=== PATIENT | female | born 2000 | race African-American/Black ===

== ENCOUNTER 2018-07-29 23:33 | Emergency (ER) | payer OTHER, SELFPAY ==
[2018-07-29 23:45] VITALS: BP 125/98; PULSE 77; RESP 17; TEMP 36.8; O2SAT 99; BMI 20.1
--- NOTE | 2018-07-30 04:08 | ED.MEDCLEAR ---
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 When she inspected and more closely she was sprayed and thinks she got a few drops of jet feel in her mouth. She states she certainly did not swallow any. She had impressive coughing and gagging immediately but denies any ongoing symptoms. She has had no cough, shortness of breath or any other difficulty in breathing. She has had no nausea or vomiting. She is not dizzy or weak or lightheaded. MD complaint: medical clearance requested Onset (ago): hour(s) Reason for Medical Clearance: other Place: work Traumatic Symptoms: denies traumatic injury Associated Symptoms: denies other symptoms Treatments Prior to Arrival: none Review of Systems Constitutional Denies chills, Denies fever(s), Denies lethargy and Denies weakness Eyes Denies change in vision, Denies eye discharge, Denies irritation and Denies loss of vision ENT Ears, Nose, Mouth, and Throat: Reports change in voice, Denies neck pain and Reports sore throat Cardiovascular Denies chest pain, Denies irregular heart rhythm, Denies lightheadedness, Denies palpitations, Denies dyspnea, Denies dyspnea on exertion and Denies orthopnea Respiratory Denies cough, Denies dyspnea, Denies dyspnea on exertion and Denies wheezing Gastrointestinal Gastrointestinal: Denies abdominal pain, Denies change in bowel habits, Denies diarrhea, Denies nausea and Denies vomiting Genitourinary Denies hematuria, Denies flank pain, Denies urinary incontinence and Denies urinary urgency Musculoskeletal Denies neck pain Integumentary/Breasts Denies pruritus, Denies erythema, Denies rash and Denies wounds Neurologic Denies confusion, Denies loss of vision and Denies weakness Psychiatric Denies anxiety, Denies confusion, Denies depression, Denies homicidal ideation and Denies suicidal ideation Endocrine Denies palpitations Hematologic/Lymphatic Denies easy bruising Allergic/Immunologic Denies wheezing [facility] Social History Smoking Status: Never smoker Social History Smoking Status: Never smoker Exam Narrative Exam Narrative: GENERAL: This is a well-nourished, well-developed patient, in mild distress. HEAD: Atraumatic. Normocephalic. No temporal or scalp tenderness. EYES: Pupils equal round and reactive. Extraocular motions intact. No scleral icterus. No injection or drainage. ENT: Nose without bleeding, purulent drainage or septal hematoma. Throat without erythema, tonsillar hypertrophy or exudate. Uvula midline. Airway patent. NECK: Trachea midline. No JVD or lymphadenopathy. Supple, nontender, no meningeal signs. CARDIOVASCULAR: Regular rate and rhythm without murmurs, gallops, or rubs. RESPIRATORY: Clear to auscultation. Breath sounds equal bilaterally. No wheezes, rales, or rhonchi. GASTROINTESTINAL: Abdomen soft, non-tender, nondistended. No hepato-splenomegaly, or palpable masses. No guarding. EXTREMITIES: No clubbing, cyanosis, or edema. No joint tenderness, effusion, or edema noted. BACK: Nontender without deformity or crepitance. No flank tenderness. NEURO: AOx3. SKIN: No rash or erythema. Initial Vital Signs Initial Vital Signs: Vital Signs Temperature 98.3 F 07/29/18 23:45 Pulse Rate 77 07/29/18 23:45 Respiratory Rate 17 07/29/18 23:45 Blood Pressure 125/98 H 07/29/18 23:45 Pulse Oximetry 99 07/29/18 23:45 MDM - Medical Clearance MDM Narrative Medical decision making narrative: Patient had a very minimal exposure to hydrocarbons. She had extensive coughing and sputtering and has had a sore throat since. She is certain she did not swallow any and denies any difficulty with abdominal pain, nausea, vomiting or shortness of breath with cough. I have consulted poison Control and they sure the opinion that this was a very minor exposure and had no imaging or lab work nor official observation. Our needed. She is given return precautions which she verbalizes an understanding Discharge Plan Departure Patient Disposition: Home Clinical Impression: Accidental hydrocarbon ingestion Qualifiers: Encounter type: initial encounter Qualified Code(s): T59.891A - Toxic effect of other specified gases, fumes and vapors, accidental (unintentional), initial encounter Discharge Date/Time: 07/30/18 00:11 Interventions: ED Discharge Assessment Last Done: 07/30/18 00:10 Instructions: DI for Accidental Ingestion -- Adult Activity Restrictions/Additional Instructions: *You have been diagnosed with [ accidental hydrocarbon exposure ] *What to do: *Follow up with your primary care provider in 2-3 days, call for an appointment. Let them know you were seen in the Emergency Department and that we ask that you be seen in follow up *Return to ER if you should have any new, worsening or concerning symptoms, such as [ ongoing cough, shortness of breath, vomiting or other bothersome symptoms]
== END 2018-07-30 00:11 | disposition home or self-care (01) ==
PROVIDERS: Emergency Provider Emergency Medicine
DX: T59.891A Toxic effect of other specified gases, fumes and vapors, accidental (unintentional), initial encounter (principal); Y99.1 Military activity
CPT/HCPCS: 99282

== ENCOUNTER 2018-12-02 13:30 | Emergency (ER) | payer OTHER, SELFPAY ==
[2018-12-02] VITALS (8 sets, daily range): BP systolic 90–124; BP diastolic 55–84; PULSE 66–92; RESP 14–18; TEMP 36.4; O2SAT 99–100
[2018-12-02 13:55] LABS: Bacteria Urine None Seen; RBC Urine None Seen (0-5/HPF)
[2018-12-02 14:06] LABS: Culture Indicated Urine Specimen Cultured; Squamous Epithelial Cell Urine 0-1 /HPF (0-5/HPF); WBC Urine 5-10/HPF (0-5/HPF)
--- NOTE | 2018-12-02 14:18 | ED_ITS ---
HPI - Weakness <JAYME De Oliveira - Last Filed: 12/02/18 21:13> General Chief complaint: Weakness Stated complaint: LIGHTHEADED, BODY TINGLING Time Seen by Provider: 12/02/18 13:56 Source: patient Mode of arrival: ambulatory Limitations: no limitations History of Present Illness HPI Narrative: 17-year-old female presents emergency department today complaining of increased headaches, fatigue, loss of appetite, nausea, that has increased over the past few weeks, patient states that she has had headaches behind her eyes for about 5 years, they have just recently increased in frequency since she is trying a . Over the last 3 days she has not eaten very much because she has been nauseated. Today she felt lightheaded and dizzy when she stood up. Denies fevers, chills chest pain, shortness of breath, abdominal pain, vomiting, diarrhea, or dysuria. When questioned, patient states that she has had a lot of anxiety recently, but does not elaborate on the issues. She states she feels safe where she is living. Related Data Home Medications Medication Instructions Recorded Confirmed No Known Home Medications 12/02/18 12/02/18 Allergies Allergy/AdvReac Type Severity Reaction Status Date / Time No Known Drug Allergies Allergy Verified 12/02/18 14:12 Review of Systems <JAYME De Oliveira - Last Filed: 12/02/18 21:13> Review of Systems REVIEW OF SYSTEMS: GENERAL: Denies fever or chills. HENT: No head trauma, hearing loss or sore throat. Complains of headache, see HPI. EYES: No loss of vision, double vision, eye pain, or irritation. CARDIOVASCULAR: No chest pain or syncope. RESPIRATORY: No shortness of breath or cough. GASTROINTESTINAL: Complains of decreased appetite, see HPI. GENITOURINARY: No flank pain or dysuria. MUSCULOSKELETAL: Complains of generalized fatigue, see HPI. INTEGUMENTARY: No rash, lesions, or pruritus. NEURO: No numbness, tingling, memory loss, or confusion. Complains of difficulty sleeping. PSYCH: Reports increase anxiety, see HPI. PFSH <JAYME De Oliveira - Last Filed: 12/02/18 21:13> Medical History Migraines (Acute) Social History Smoking Status: Never smoker Social History Smoking Status: Never smoker Exam <JAYME De Oliveira - Last Filed: 12/02/18 21:13> Initial Vital Signs Initial Vital Signs: Vital Signs Temperature 97.5 F L 12/02/18 13:38 Pulse Rate 73 12/02/18 13:38 Respiratory Rate 18 12/02/18 13:38 Blood Pressure 124/84 12/02/18 13:38 Pulse Oximetry 99 12/02/18 13:38 PHYSICAL EXAMINATION: GENERAL: Well groomed, alert, and cooperative. Thin appearing with a flat affect Answers questions promptly and appropriately. Vital signs noted. HENT: Normocephalic, atraumatic. Oral mucosa is pink and moist. Oropharynx without erythema. EYES: PERRLA, EOMIs, conjunctiva pink, sclera white, no periorbital swelling. CARDIOVASCULAR: S1 and S2 sounds normal. Regular rate and rhythm, no murmurs, clicks, or bruits. No pedal edema. RESPIRATORY: Normal respiratory rate, trachea midline, airway patent. No stridor, nasal flaring or accessory muscle use. Lungs are clear in all braga without wheeze, rhonchi, or crackles. GASTROINTESTINAL: Bowel sounds normoactive. Abdomen is soft and non-tender. No organomegaly. MUSCULOSKELETAL: Normal gait and coordination. Equal tone and mass bilaterally. EXTREMITIES: CMS intact. Moves all extremities. SKIN: Warm, dry, soft, appropriate color for ethnicity. No lesions, rashes, or wounds. NEURO: Alert and Oriented X 3. Good coordination. CN III-XII intact. No ataxia, or sensory deficits, or cognitive issues. PSYCH: Flat affect, speaks in a very soft tone. <Tereza Kc DO - Last Filed: 12/04/18 07:54> Initial Vital Signs Initial Vital Signs: Vital Signs Temperature 97.5 F L 12/02/18 13:38 Pulse Rate 73 12/02/18 13:38 Respiratory Rate 18 12/02/18 13:38 Blood Pressure 124/84 12/02/18 13:38 Pulse Oximetry 99 12/02/18 13:38 Course <SUKHJINDER De OliveiraP - Last Filed: 12/02/18 21:13> Orders Ordered: Discontinued Medications Sodium Chloride (Normal Saline 0.9%) 1,000 mls @ 1,000 mls/hr IV BOLUS ONE Stop: 12/02/18 15:11 Last Infusion: 12/02/18 16:03 Dose: 0 mls/hr Admin: 12/02/18 14:31 Dose: 1,000 mls/hr Sodium Chloride (Normal Saline 0.9%) 1,000 mls @ 1,000 mls/hr IV BOLUS ONE Stop: 12/02/18 17:09 Last Infusion: 12/02/18 17:12 Dose: 0 mls/hr Admin: 12/02/18 16:12 Dose: 1,000 mls/hr Ketorolac Tromethamine (Toradol) 30 mg IV NOW ONE Stop: 12/02/18 14:13 Last Admin: 12/02/18 15:16 Dose: Not Given Metoclopramide HCl (Reglan) 10 mg IV NOW ONE Stop: 12/02/18 14:13 Last Admin: 12/02/18 15:16 Dose: 10 mg Reevaluation(s) Reevaluation #1: Patient states she was feeling much better after Reglan and 2 L of fluid. Patient was able to eat applesauce and she does. After an extensive conversation she stated that she was having a lot of anxiety, she denied any resources at this time but was encouraged to seek help if needed. Consultations Consultation #1: Patient staffed with Dr. Phan. Vital Signs - 8 hr 12/02/18 13:38 12/02/18 14:15 12/02/18 15:00 Temperature 97.5 F L Pulse Rate 73 69 70 Pulse Rate [Orthostatic Lying] Pulse Rate [Orthostatic Sitting] Pulse Rate [Orthostatic Standing] Respiratory Rate 18 16 16 Blood Pressure 124/84 Blood Pressure [Left Arm] Blood Pressure [Orthostatic Lying] Blood Pressure [Orthostatic Sitting] Blood Pressure [Orthostatic Standing] Blood Pressure [Right Arm] 95/68 106/62 Pulse Oximetry 99 99 100 12/02/18 15:15 12/02/18 16:00 12/02/18 16:17 Temperature Pulse Rate 66 77 68 Pulse Rate [Orthostatic Lying] Pulse Rate [Orthostatic Sitting] Pulse Rate [Orthostatic Standing] Respiratory Rate 15 14 16 Blood Pressure Blood Pressure [Left Arm] 90/68 102/67 Blood Pressure [Orthostatic Lying] Blood Pressure [Orthostatic Sitting] Blood Pressure [Orthostatic Standing] Blood Pressure [Right Arm] 107/67 Pulse Oximetry 99 100 100 12/02/18 17:11 12/02/18 17:13 Temperature Pulse Rate 82 Pulse Rate [Orthostatic Lying] 77 Pulse Rate [Orthostatic Sitting] 82 Pulse Rate [Orthostatic Standing] 92 H Respiratory Rate 16 Blood Pressure 104/68 Blood Pressure [Left Arm] Blood Pressure [Orthostatic Lying] 100/55 L Blood Pressure [Orthostatic Sitting] 102/68 Blood Pressure [Orthostatic Standing] 104/68 Blood Pressure [Right Arm] Pulse Oximetry 99 <Tereza Kc, - Last Filed: 12/04/18 07:54> Orders Ordered: Discontinued Medications Sodium Chloride (Normal Saline 0.9%) 1,000 mls @ 1,000 mls/hr IV BOLUS ONE Stop: 12/02/18 15:11 Last Infusion: 12/02/18 16:03 Dose: 0 mls/hr Admin: 12/02/18 14:31 Dose: 1,000 mls/hr Sodium Chloride (Normal Saline 0.9%) 1,000 mls @ 1,000 mls/hr IV BOLUS ONE Stop: 12/02/18 17:09 Last Infusion: 12/02/18 17:12 Dose: 0 mls/hr Admin: 12/02/18 16:12 Dose: 1,000 mls/hr Ketorolac Tromethamine (Toradol) 30 mg IV NOW ONE Stop: 12/02/18 14:13 Last Admin: 12/02/18 15:16 Dose: Not Given Metoclopramide HCl (Reglan) 10 mg IV NOW ONE Stop: 12/02/18 14:13 Last Admin: 12/02/18 15:16 Dose: 10 mg Vital Signs - 8 hr 12/02/18 13:38 12/02/18 14:15 12/02/18 15:00 Temperature 97.5 F L Pulse Rate 73 69 70 Pulse Rate [Orthostatic Lying] Pulse Rate [Orthostatic Sitting] Pulse Rate [Orthostatic Standing] Respiratory Rate 18 16 16 Blood Pressure 124/84 Blood Pressure [Left Arm] Blood Pressure [Orthostatic Lying] Blood Pressure [Orthostatic Sitting] Blood Pressure [Orthostatic Standing] Blood Pressure [Right Arm] 95/68 106/62 Pulse Oximetry 99 99 100 12/02/18 15:15 12/02/18 16:00 12/02/18 16:17 Temperature Pulse Rate 66 77 68 Pulse Rate [Orthostatic Lying] Pulse Rate [Orthostatic Sitting] Pulse Rate [Orthostatic Standing] Respiratory Rate 15 14 16 Blood Pressure Blood Pressure [Left Arm] 90/68 102/67 Blood Pressure [Orthostatic Lying] Blood Pressure [Orthostatic Sitting] Blood Pressure [Orthostatic Standing] Blood Pressure [Right Arm] 107/67 Pulse Oximetry 99 100 100 12/02/18 17:11 12/02/18 17:13 Temperature Pulse Rate 82 Pulse Rate [Orthostatic Lying] 77 Pulse Rate [Orthostatic Sitting] 82 Pulse Rate [Orthostatic Standing] 92 H Respiratory Rate 16 Blood Pressure 104/68 Blood Pressure [Left Arm] Blood Pressure [Orthostatic Lying] 100/55 L Blood Pressure [Orthostatic Sitting] 102/68 Blood Pressure [Orthostatic Standing] 104/68 Blood Pressure [Right Arm] Pulse Oximetry 99 MDM - Weakness <JAYME De Oliveira - Last Filed: 12/02/18 21:13> Medical Records Attestation: I reviewed the patient's medical records. Lab Data Attestation: I reviewed the patient's lab results. Result diagrams: 12/02/18 14:25 12/02/18 14:25 Lab Results 12/02/18 12/02/18 12/02/18 Range/Units 13:54 14:25 14:25 WBC 7.0 (4.5-11.0) X10^3/uL RBC 4.74 (4.0-5.2) X10^6/uL Hgb 14.6 (12.0-16.0) g/dL Hct 41.7 (36-46) % MCV 87.8 (80-100) fL MCH 30.7 (26-34) PG MCHC 35.0 (30-36) % RDW 11.9 (11.6-14.8) % Plt Count 215 (150-400) X10^3/uL Neut % (Auto) 66.8 (50-75) % Lymph % (Auto) 26.9 (25-40) % [place] % (Auto) 5.7 (3-14) % Eos % (Auto) 0.1 L (2-4) % Baso % (Auto) 0.5 (0-2) % Neut # (Auto) 4700 (6816-9885) /uL Lymph # (Auto) 1900 (5747-5812) /uL [place] # (Auto) 400 (0-900) /uL Eos # (Auto) 0 (0-450) /uL Baso # (Auto) 0 (0-100) /uL Sodium 139 (137-145) mmol/L Potassium 4.2 (3.4-5.1) mmol/L Chloride 100 (98-107) mmol/L Carbon Dioxide 29 (22-32) mmol/L BUN 14 (7-17) mg/dL Creatinine 0.90 (0.52-1.04) mg/dL Estimated GFR > 60.0 (>60) mL/min BUN/Creatinine Ratio 15.6 (6-22) Glucose 75 (70-100) mg/dL Calcium 10.0 (8.4-10.2) mg/dL Total Bilirubin 1.0 (0.2-1.3) mg/dL AST 26 (14-36) IU/L ALT 21 (9-52) IU/L Alkaline Phosphatase 89 (38-126) U/L Total Protein 7.8 (6.3-8.2) g/dL Albumin 4.6 (3.5-5.0) g/dL Globulin 3.2 (1.7-4.1) g/dL Albumin/Globulin Ratio 1.4 (1.0-2.8) TSH (0.47-4.68) uIU/mL HCG, Quant mIU/mL Urine RBC None seen (0-5/HPF) Urine WBC 5-10/hpf H (0-5/HPF) Ur Squamous Epith Cells 0-1 /hpf (0-5/HPF) Urine Bacteria None seen (None) Ur Culture Indicated? Specimen cultured 12/02/18 12/02/18 Range/Units 14:25 14:25 WBC (4.5-11.0) X10^3/uL RBC (4.0-5.2) X10^6/uL Hgb (12.0-16.0) g/dL Hct (36-46) % MCV (80-100) fL MCH (26-34) PG MCHC (30-36) % RDW (11.6-14.8) % Plt Count (150-400) X10^3/uL Neut % (Auto) (50-75) % Lymph % (Auto) (25-40) % [place] % (Auto) (3-14) % Eos % (Auto) (2-4) % Baso % (Auto) (0-2) % Neut # (Auto) (7256-8018) /uL Lymph # (Auto) (5405-1141) /uL [place] # (Auto) (0-900) /uL Eos # (Auto) (0-450) /uL Baso # (Auto) (0-100) /uL Sodium (137-145) mmol/L Potassium (3.4-5.1) mmol/L Chloride (98-107) mmol/L Carbon Dioxide (22-32) mmol/L BUN (7-17) mg/dL Creatinine (0.52-1.04) mg/dL Estimated GFR (>60) mL/min BUN/Creatinine Ratio (6-22) Glucose (70-100) mg/dL Calcium (8.4-10.2) mg/dL Total Bilirubin (0.2-1.3) mg/dL AST (14-36) IU/L ALT (9-52) IU/L Alkaline Phosphatase (38-126) U/L Total Protein (6.3-8.2) g/dL Albumin (3.5-5.0) g/dL Globulin (1.7-4.1) g/dL Albumin/Globulin Ratio (1.0-2.8) TSH 0.83 (0.47-4.68) uIU/mL HCG, Quant < 2.39 mIU/mL Urine RBC (0-5/HPF) Urine WBC (0-5/HPF) Ur Squamous Epith Cells (0-5/HPF) Urine Bacteria (None) Ur Culture Indicated? Point of Care Testing Test Results Negative Urine Dip Bedside Urine Glucose Negative Bedside Urine Bilirubin + 1 Bedside Urine Ketone ++ 40 Urine Specific [place] 1.030 Bedside Urine Occult Blood + Bedside Urine pH 6.0 Bedside Urine Protein + 30 Bedside Urine Urobilinogen 1+ 2mg Bedside Urine Nitrite - Negative Bedside Urine Leukocytes +/- 15 Esterase MDM Narrative Medical decision making narrative: I suspect patient's symptoms are caused by multiple issues with the greatest being anxiety. I suspect that her lightheadedness is caused by the fact that she has not eaten in the past 3 days, and has only ingested a little amount of fluid resulting in dehydration and orthostatic hypotension as well as the fact her symptoms occurred when she stood up. Less concern for acute infection due to lack of fever, lack of elevated white blood cell count, and due to benign exam. I believe that her migraines are contributing to her nausea, due to the description of her headache, the onset of headaches being since middle school, and the degree to which they occur. Patient denied any medication for treatment of her migraines. I suspect her abnormal menstrual cycle have been a chronic issue, she was encouraged to follow up with her primary care provider for further workup as her anxiety, her labs today, and history may be contributing to this. <Tereza Kc, DO - Last Filed: 12/04/18 07:54> Lab Data Lab Results 12/02/18 12/02/18 12/02/18 Range/Units 13:54 14:25 14:25 WBC 7.0 (4.5-11.0) X10^3/uL RBC 4.74 (4.0-5.2) X10^6/uL Hgb 14.6 (12.0-16.0) g/dL Hct 41.7 (36-46) % MCV 87.8 (80-100) fL MCH 30.7 (26-34) PG MCHC 35.0 (30-36) % RDW 11.9 (11.6-14.8) % Plt Count 215 (150-400) X10^3/uL Neut % (Auto) 66.8 (50-75) % Lymph % (Auto) 26.9 (25-40) % [place] % (Auto) 5.7 (3-14) % Eos % (Auto) 0.1 L (2-4) % Baso % (Auto) 0.5 (0-2) % Neut # (Auto) 4700 (3384-4151) /uL Lymph # (Auto) 1900 (4549-4582) /uL [place] # (Auto) 400 (0-900) /uL Eos # (Auto) 0 (0-450) /uL Baso # (Auto) 0 (0-100) /uL Sodium 139 (137-145) mmol/L Potassium 4.2 (3.4-5.1) mmol/L Chloride 100 (98-107) mmol/L Carbon Dioxide 29 (22-32) mmol/L BUN 14 (7-17) mg/dL Creatinine 0.90 (0.52-1.04) mg/dL Estimated GFR > 60.0 (>60) mL/min BUN/Creatinine Ratio 15.6 (6-22) Glucose 75 (70-100) mg/dL Calcium 10.0 (8.4-10.2) mg/dL Total Bilirubin 1.0 (0.2-1.3) mg/dL AST 26 (14-36) IU/L ALT 21 (9-52) IU/L Alkaline Phosphatase 89 (38-126) U/L Total Protein 7.8 (6.3-8.2) g/dL Albumin 4.6 (3.5-5.0) g/dL Globulin 3.2 (1.7-4.1) g/dL Albumin/Globulin Ratio 1.4 (1.0-2.8) TSH (0.47-4.68) uIU/mL HCG, Quant mIU/mL Urine RBC None seen (0-5/HPF) Urine WBC 5-10/hpf H (0-5/HPF) Ur Squamous Epith Cells 0-1 /hpf (0-5/HPF) Urine Bacteria None seen (None) Ur Culture Indicated? Specimen cultured 12/02/18 12/02/18 Range/Units 14:25 14:25 WBC (4.5-11.0) X10^3/uL RBC (4.0-5.2) X10^6/uL Hgb (12.0-16.0) g/dL Hct (36-46) % MCV (80-100) fL MCH (26-34) PG MCHC (30-36) % RDW (11.6-14.8) % Plt Count (150-400) X10^3/uL Neut % (Auto) (50-75) % Lymph % (Auto) (25-40) % [place] % (Auto) (3-14) % Eos % (Auto) (2-4) % Baso % (Auto) (0-2) % Neut # (Auto) (3576-4428) /uL Lymph # (Auto) (1941-6908) /uL [place] # (Auto) (0-900) /uL Eos # (Auto) (0-450) /uL Baso # (Auto) (0-100) /uL Sodium (137-145) mmol/L Potassium (3.4-5.1) mmol/L Chloride (98-107) mmol/L Carbon Dioxide (22-32) mmol/L BUN (7-17) mg/dL Creatinine (0.52-1.04) mg/dL Estimated GFR (>60) mL/min BUN/Creatinine Ratio (6-22) Glucose (70-100) mg/dL Calcium (8.4-10.2) mg/dL Total Bilirubin (0.2-1.3) mg/dL AST (14-36) IU/L ALT (9-52) IU/L Alkaline Phosphatase (38-126) U/L Total Protein (6.3-8.2) g/dL Albumin (3.5-5.0) g/dL Globulin (1.7-4.1) g/dL Albumin/Globulin Ratio (1.0-2.8) TSH 0.83 (0.47-4.68) uIU/mL HCG, Quant < 2.39 mIU/mL Urine RBC (0-5/HPF) Urine WBC (0-5/HPF) Ur Squamous Epith Cells (0-5/HPF) Urine Bacteria (None) Ur Culture Indicated? Point of Care Testing Test Results Negative Urine Dip Bedside Urine Glucose Negative Bedside Urine Bilirubin + 1 Bedside Urine Ketone ++ 40 Urine Specific [place] 1.030 Bedside Urine Occult Blood + Bedside Urine pH 6.0 Bedside Urine Protein + 30 Bedside Urine Urobilinogen 1+ 2mg Bedside Urine Nitrite - Negative Bedside Urine Leukocytes +/- 15 Esterase Discharge Plan Departure Patient Disposition: Home Clinical Impression: Acute dehydration, Generalized headaches Discharge Date/Time: 12/02/18 17:13 Interventions: ED Discharge Assessment Last Done: 12/02/18 17:13 Instructions: DI for Orthostatic Hypotension, DI for Dehydration -- Adult Activity Restrictions/Additional Instructions: Thank you for entrusting me with your care today. As discussed, your lab work was negative for any acute findings. However, urine showed 1 abnormal, a culture will be done if it is positive for bacteria (urinary tract infection) you will get a call and be prescribed antibiotics. If you do not hear from us, this means that everything is clear. Please follow up with her primary care provider as scheduled tomorrow. Return to the emergency department if you have uncontrollable vomiting, chest pain, or shortness of breath, syncope, or other concerning symptoms. Prescriptions: No Action No Known Home Medications RF: 0 Stand Alone Forms: Work Release Note <Tereza Kc DO - Last Filed: 12/04/18 07:54> Cosign ED Attending Cosignature Attestation: Per chart patient was staffed with Dr. phan Supervised by Tereza Kc DO
[2018-12-02] MEDS: SODIUM CHLORIDE 0.9% 1,000 ML 1000 ML IV ×2 (14:31→16:12)
[2018-12-02 14:36] LABS: Add Manual Diff / Slide Review NO; Basophils Absolute Auto 0 /uL (0-100); Basophils Percent Auto 0.5 % (0-2); Eosinophils Absolute Auto 0 /uL (0-450); Eosinophils Percent Auto 0.1 % (2-4); Hematocrit 41.7 % (36-46); Hemoglobin 14.6 g/dL (12.0-16.0); Lymphocytes Absolute Auto 1900 /uL (1100-4500); Lymphocytes Percent Auto 26.9 % (25-40); Mean Corpuscular Hemoglobin 30.7 PG (26-34); Mean Corpuscular Volume 87.8 fL (80-100); Monocytes Absolute Auto 400 /uL (0-900); Monocytes Percent Auto 5.7 % (3-14); Neutrophils Absolute Auto 4700 /uL (1500-7000); Neutrophils Percent Auto 66.8 % (50-75); Platelet Count 215 X10^3/uL (150-400); Red Blood Cell Count 4.74 X10^6/uL (4.0-5.2); Red Cell Distribution Width 11.9 % (11.6-14.8)
[2018-12-02 14:51] LABS: Alanine Aminotransferase 21 IU/L (9-52); Albumin 4.6 g/dL (3.5-5.0); Albumin Globulin Ratio 1.4 (1.0-2.8); Alkaline Phosphatase 89 U/L (38-126); Aspartate Aminotransferase 26 IU/L (14-36); BUN Creatinine Ratio 15.6 (6-22); Blood Urea Nitrogen 14 mg/dL (7-17); Carbon Dioxide 29 mmol/L (22-32); Chloride 100 mmol/L (98-107); Estimated Glomerular Filt Rate > 60.0 mL/min (>60); Globulin 3.2 g/dL (1.7-4.1); Glucose 75 mg/dL (70-100); HEMOLYSIS < 15 (0-50); Potassium 4.2 mmol/L (3.4-5.1); Sodium 139 mmol/L (137-145); Total Protein 7.8 g/dL (6.3-8.2)
[2018-12-02 15:08] LABS: HCG Quantitative /Beta subunit < 2.39 mIU/mL
[2018-12-02] MEDS: METOCLOPRAMIDE 10 MG/2 ML INJ IV (15:16)
[2018-12-02 15:30] LABS: Thyroid Stimulating Hormone 0.83 uIU/mL (0.47-4.68)
--- NOTE | 2018-12-02 16:11 | PC.NURSE ---
She reports she hasn't eaten or drank anything all day up until now.
== END 2018-12-02 17:13 | disposition home or self-care (01) ==
PROVIDERS: Emergency Medicine; Emergency Provider Nurse Practitioner
DX: E86.0 Dehydration (principal); R51 Headache
CPT/HCPCS: 36591; 80053; 81003; 81015; 81025; 84443; 84702; 85025; 87086; 96361; 96374; 99284; J2765

== ENCOUNTER 2019-01-23 18:01 | Emergency (ER) | payer OTHER, SELFPAY ==
[2019-01-23 18:05] VITALS: BP 102/69; PULSE 88; RESP 14; TEMP 36.4; O2SAT 99
--- NOTE | 2019-01-23 19:44 | PC.NURSE ---
pt states she sometimes gets a really sharp shooting pain to the left lower abd.
--- NOTE | 2019-01-23 20:29 | ED.FEMALEGU ---
HPI - Female Genitourinary <JAYME Lora - Last Filed: 01/23/19 23:35> General Chief complaint: Vaginal Bleeding Stated complaint: FEMININE ISSUES Time Seen by Provider: 01/23/19 20:10 Source: patient Mode of arrival: ambulatory Limitations: no limitations History of Present Illness HPI Narrative: This is 18-year-old female, occasional smoker, presents to ED with headache which is located in right-sided temporal or posterior eye with occasional nausea and photophobia for last several months. She reports this has been more frequent recently. She does not have fevers, chills, nausea, vomiting at this time. She denies any rashes around her scalp or temporal area. She states she has difficult time staying in sleep and usually sleeps not more than four to five hours a night. She endorses she is under increase in stress. She also states she has noticed brown vaginal discharge and urinary frequency. She is sexually active and when asked about concerns for STIs she states I sure hope not. Related Data Home Medications Medication Instructions Recorded Confirmed No Known Home Medications 12/02/18 12/02/18 Allergies Allergy/AdvReac Type Severity Reaction Status Date / Time No Known Drug Allergies Allergy Verified 01/23/19 18:04 Review of Systems <JAYME Lora - Last Filed: 01/23/19 23:35> Review of Systems Narrative: General: Denies fever, chills, fatigue, malaise, sweats. HEENT: Denies sinus pain, ear pain, sore throat, difficulty swallowing, dizziness. Respiratory: Denies dyspnea, cough, wheezing, hemoptysis, sputum. Cardiovascular: Denies chest pain, palpitations, orthopnea, edema. Gastrointestinal: Denies nausea, vomiting, abdominal pain, diarrhea, constipation, melena. : Reports urinary frequency. Denies dysuria, incontinence, hematuria, urinary retention. Musculoskeletal: Denies weakness, joint pain or bony pain. Skin: Denies rash, skin lesions, or other. Neurologic: Denies weakness, headache, numbness, change in speech, confusion, seizures, incoordination. Psychiatric: No concerning psychosocial issues. 12-point review of systems is negative except for those stated above. PFSH <JAYME Lora - Last Filed: 01/23/19 23:35> Medical History Migraines (Acute) Social History Smoking Status: Never smoker Social History (Updated 01/23/19 @ 20:33 by JAYME Lora) Smoking Status: Current some day smoker Exam <JAYME Lora - Last Filed: 01/23/19 23:35> Narrative Exam Narrative: GEN: Alert, oriented x 3, well appearing and nourished, and in no acute distress. Head: Normal cephalic, atraumatic. No scalp or temporal tenderness, palpable mass or rash. EYES: Pupils are equal, round, and reactive to light and accommodation. Extraocular muscles are intact bilaterally. There is no subconjunctival hemorrhage, exudate and sclera non-icteric. ENT: Hearing grossly intact. Nose without bleeding, purulent discharge. Facial sinuses nontender to palpate. Mucous membrane moist, no mucosal lesion. Throat without erythema, tonsillar hypertrophy or exudate. Uvula in midline, airway patent. Neck: Trachea in midline. No JVD, non-tender without lymphadenopathy. No masses or thyroid megaly. Supple, non-tender and no meningeal signs. CARDIAC: Normal regular rate and rhythm without murmurs, gallops, or rubs. No chest wall tenderness. No peripheral edema, cyanosis or pallor. Capillary refill is less than 2 seconds. RESPIRATORY: Lungs are cleat to auscultate bilaterally. No cough, wheezes, rales, or rhonchi. No stridor, respiratory distress, increase work of breathing, or accessary muscle used. ABD: Abdomen soft, nontender and non-distended. No guarding or rebound tenderness to palpate. Bowel sounds are normal in all 4 quadrants. There is no palpable masses or organomegaly. PELVIC: Normally developed external female genitalia with no external lesions or eruptions. Vagina and cervix have no lesions, inflammation, light brown watery discharge. No cervical motion tenderness. Uterus is within normal limits with no adnexal fullness. EXT: Full painless ROM of all extremities with no loss of sensation, strength, effusion or edema. SKIN: Warm, dry, normal color for patient. No erythema, lesions or rash over visible areas. BACK: Nontender without deformity or crepitance. No flank tenderness. NEUROLOGICAL: Alert and oriented to place, time and person. Sensation and motor function intact bilaterally. No facial droops, dysphasia. PSYCHIATRIC: Good judgement and reason, without hallucinations, abnormal affect or abnormal behaviors during the examination. Patient is not suicidal. Initial Vital Signs Initial Vital Signs: Vital Signs Temperature 97.6 F 01/23/19 18:05 Pulse Rate 88 01/23/19 18:05 Respiratory Rate 14 01/23/19 18:05 Blood Pressure 102/69 01/23/19 18:05 Pulse Oximetry 99 01/23/19 18:05 <Marlene Rodriguez DO - Last Filed: 01/24/19 01:55> Initial Vital Signs Initial Vital Signs: Vital Signs Temperature 97.6 F 01/23/19 18:05 Pulse Rate 88 01/23/19 18:05 Respiratory Rate 14 01/23/19 18:05 Blood Pressure 102/69 01/23/19 18:05 Pulse Oximetry 99 01/23/19 18:05 Course <JAYME Lora - Last Filed: 01/23/19 23:35> Orders Ordered: ED Orders 01/23/19 19:27 Urine Chlamydia Gonorrhea PCR Stat 01/23/19 21:15 Genital Culture Stat Wet Prep Tric BV Nel Stat Discontinued Medications Acetaminophen (Tylenol) 650 mg PO NOW ONE Stop: 01/23/19 20:25 Last Admin: 01/23/19 20:45 Dose: 650 mg Documented by: BTONER Ketorolac Tromethamine (Toradol) 30 mg IM NOW ONE Stop: 01/23/19 20:25 Last Admin: 01/23/19 20:44 Dose: 30 mg Documented by: BTONER Vital Signs Vital signs: Vital Signs - 8 hr 01/23/19 18:05 01/23/19 23:27 Temperature 97.6 F Pulse Rate 88 73 Respiratory Rate 14 Blood Pressure 102/69 117/82 Pulse Oximetry 99 97 <Marlene Rodriguez DO - Last Filed: 01/24/19 01:55> Orders Ordered: ED Orders 01/23/19 19:27 Urine Chlamydia Gonorrhea PCR Stat 01/23/19 21:15 Genital Culture Stat Wet Prep Tric BV Nel Stat Discontinued Medications Acetaminophen (Tylenol) 650 mg PO NOW ONE Stop: 01/23/19 20:25 Last Admin: 01/23/19 20:45 Dose: 650 mg Documented by: GREG Ketorolac Tromethamine (Toradol) 30 mg IM NOW ONE Stop: 01/23/19 20:25 Last Admin: 01/23/19 20:44 Dose: 30 mg Documented by: GREG Vital Signs Vital signs: Vital Signs - 8 hr 01/23/19 18:05 01/23/19 23:27 Temperature 97.6 F Pulse Rate 88 73 Respiratory Rate 14 Blood Pressure 102/69 117/82 Pulse Oximetry 99 97 MDM - Female Genitourinary <JAYME Lora - Last Filed: 01/23/19 23:35> Differential Diagnosis Differential diagnosis: Likely urinary tract infection and other (vaginal infection, headaches, ) Medical Records Attestation: I reviewed the patient's medical records. Lab Data Attestation: I reviewed the patient's lab results. 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 Patient reports she has difficult time staying asleep and also has some stress in her life. Patient was seen here with similar symptoms about a month ago and followed up with primary care physician and was told patient does not have migraine headache. She was discharged with headache medication which she does not recall the name. She reports her headache is little be more frequent recently. No neurological deficit was noted during exam. She states her pain has improved after medicated in ED. She was offered with drinks and snacks. Pelvic exam was benign except watery light brown discharge. Genital culture, wet prep, urine GC Chlamydia were sent out to left. All test results are unremarkable. It showed occasional clue cells in wet prep. The lab was called and verified that occasional means very little in count. At this time, the patient will not be treated with antibiotic medications for BV since this is less than 20%. Patient's urine test indicates no infection and urine HCG was negative. Return precautions were discussed with patient. LMP was about 6 weeks ago and this may be the beginning of her cycle. Patient informed to follow up with her primary care physician and advised to discussed starting on options to regulate her periods. Patient also advised to manage her stress, adequately hydrate herself, it balanced meals and practice good sleep hygiene since her headache could be caused by these. Patient verbalized the understanding and agrees with treatment plan. No further questions were expressed at this time. <Marlene Rodriguez, DO - Last Filed: 01/24/19 01:55> Lab Data Labs: Lab Results 01/23/19 Range/Units 19:27 Ur Chlamydia DNA (PCR) Not detected N gonorrhoeae DNA (PCR) Not detected Point of Care Testing Test Results Negative Urine Dip Bedside Urine Glucose Negative Bedside Urine Bilirubin - Negative Bedside Urine Ketone - Negative Urine Specific [place] 1.010 Bedside Urine Occult Blood - Negative Bedside Urine pH 6.0 Bedside Urine Protein - Negative Bedside Urine Urobilinogen - Negative Bedside Urine Nitrite - Negative Bedside Urine Leukocytes - Negative Esterase Discharge Plan Departure Patient Disposition: Home Clinical Impression: Vaginal discharge Headache Qualifiers: Headache type: unspecified Headache chronicity pattern: episodic headache Intractability: not intractable Qualified Code(s): R51 - Headache Discharge Date/Time: 01/23/19 23:27 Instructions: DI for Headache, DI for Vaginal Discharge Activity Restrictions/Additional Instructions: You have been diagnosed with [frequent headache and vaginal discharge. The headache improved after the medication. The urine test does not indicate infection. The urine test was negative. Gonorrhea and chlamydia tests were negative. There was few clue cells in vaginal swab but not enough to treat with antibiotic medications at this time]. What to do: *Take your medications as directed. You can take [id number] Tylenol Extra Strength 2 tabs and or ibuprofen 600-800 mg with food as needed for the headache. Hydrate herself adequately. 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 *Follow up with your primary care provider in 2-3 days, call for an appointment. Let them know you were seen in the ED and that we asked you to be seen in follow up. If you do have frequent irregular menstrual cycles, consult your the primary care physician for starting low hormonal control pill. Please practice safe sex. *Return to ED if you have any new, worsening, or concerning symptoms, such as [worsening headache, vision change, unable to tolerate fluids, weakness to your limb, breathing trouble, chest pain, worsening pelvic symptoms, any acute concerns. Prescriptions: No Action No Known Home Medications RF: 0 Referrals: [facility] [Outside]
[2019-01-23] MEDS: KETOROLAC 60 MG/2 ML VIAL 30 MG IM (20:44)
[2019-01-23] MEDS: ACETAMINOPHEN 325 MG TABLET 650 MG PO (20:45)
[2019-01-23 22:35] LABS: Urine N gonorrhoeae NOT DETECTED
[2019-01-23 22:48] LABS: Urine Chlamydia NOT DETECTED
[2019-01-23 23:27] VITALS: BP 117/82; PULSE 73; O2SAT 97
== END 2019-01-23 23:27 | disposition home or self-care (01) ==
PROVIDERS: Emergency Provider Nurse Practitioner Family
DX: N89.8 Other specified noninflammatory disorders of vagina (principal); R51 Headache
CPT/HCPCS: 81003; 81025; 87070; 87077; 87147; 87205; 87210; 87491; 87591; 96372; 99283; J1885

== ENCOUNTER 2019-02-25 20:16 | Emergency (ER) | payer OTHER, SELFPAY ==
[2019-02-25 20:20] VITALS: BP 132/94; PULSE 79; RESP 18; TEMP 36.7; O2SAT 99
[2019-02-25 20:45] LABS: Bacteria Urine Occasional (0-1); Culture Indicated Urine Specimen Cultured; RBC Urine 5-10/HPF (0-5/HPF); Squamous Epithelial Cell Urine 0-1 /HPF (0-5/HPF); WBC Urine 5-10/HPF (0-5/HPF)
[2019-02-25 22:00] LABS: Add Manual Diff / Slide Review NO; Basophils Absolute Auto 0 /uL (0-100); Basophils Percent Auto 0.5 % (0-2); Eosinophils Absolute Auto 0 /uL (0-450); Eosinophils Percent Auto 0.4 % (2-4); Hematocrit 35.6 % (36-46); Hemoglobin 12.2 g/dL (12.0-16.0); Lymphocytes Absolute Auto 3000 /uL (1100-4500); Lymphocytes Percent Auto 32.3 % (25-40); Mean Corpuscular HGB Conc 34.4 % (30-36); Mean Corpuscular Hemoglobin 30.8 PG (26-34); Mean Corpuscular Volume 89.8 fL (80-100); Monocytes Absolute Auto 700 /uL (0-900); Monocytes Percent Auto 7.9 % (3-14); Neutrophils Absolute Auto 5400 /uL (1500-7000); Neutrophils Percent Auto 58.9 % (50-75); Platelet Count 207 X10^3/uL (150-400); Red Blood Cell Count 3.97 X10^6/uL (4.0-5.2); Red Cell Distribution Width 11.9 % (11.6-14.8); White Blood Cell Count 9.1 X10^3/uL (4.5-11.0)
--- NOTE | 2019-02-25 22:08 | ED.FEMALEGU ---
HPI - Female Genitourinary General Chief complaint: Vaginal Bleeding Stated complaint: bleeding for 2 months, pain, nausea Time Seen by Provider: 02/25/19 22:08 Source: patient Mode of arrival: Ambulatory Limitations: no limitations History of Present Illness HPI Narrative: The patient complains of irregular menstrual bleeding. She had irregular menstrual bleeding before having an IUD placed 2 months ago. The bleeding remains irregular, she also complains of suprapubic pain, described as cramping. She has no associated fever. She has no nausea or vomiting. She has a vaginal bleeding, she sounds like she passes maroon colored blood, medial orbit old. There is no purulent discharge. She has no bright red blood. The cramping is suprapubic. She has no history of UTI. She denies urine frequency or dysuria. She has been previously seen here for vaginitis. She is followed at the [facility] in [place], [place]. She has an appointment with a provider there later this month. She is here with ongoing symptoms as described above, there is no worsening of symptoms. Related Data Home Medications Medication Instructions Recorded Confirmed No Known Home Medications 12/02/18 02/25/19 Previous Rx's Medication Instructions Recorded sulfamethoxazole-trimethoprim 1 tab PO BID 7 Days #14 tab 02/25/19 Allergies Allergy/AdvReac Type Severity Reaction Status Date / Time No Known Drug Allergies Allergy Verified 02/25/19 20:31 Review of Systems Review of Systems ROS Unobtainable: All systems reviewed & are unremarkable except as noted in HPI and below Constitutional Constitutional: Denies chills, Denies fever(s), Denies lethargy and Denies weakness Gastrointestinal Gastrointestinal: Reports abdominal pain (Suprapubic cramping), Denies change in bowel habits, Denies diarrhea, Denies nausea and Denies vomiting Genitourinary Genitourinary: Reports as per HPI, Denies dysuria, Denies flank pain, Denies urinary incontinence, Denies urinary urgency, Denies vaginal discharge and Reports other (Vaginal bleeding as noted in HPI) Musculoskeletal Musculoskeletal: Denies back pain Integumentary/Breasts Skin/Breast: Denies erythema and Denies rash Neurologic Neurologic: Denies confusion and Denies weakness Psychiatric Psychiatric: Denies anxiety and Denies confusion [facility] Medical History (Updated 02/25/19 @ 22:31 by Tomás Thrasher MD) Migraines (Acute) No acute medical problems (Acute) Surgical History (Updated 02/25/19 @ 22:31 by Tomás Thrasher MD) No pertinent past surgical history (Acute) Social History Smoking Status: Current some day smoker Social History Smoking Status: Current some day smoker Exam Initial Vital Signs Initial Vital Signs: Vital Signs Temperature 98.1 F 02/25/19 20:20 Pulse Rate 79 02/25/19 20:20 Respiratory Rate 18 02/25/19 20:20 Blood Pressure 132/94 H 02/25/19 20:20 Pulse Oximetry 99 02/25/19 20:20 GI Inspection: normal to inspection and non-distended Palpation: No guarding, No mass and tender (Mild suprapubic tenderness.) Auscultation: normal bowel sounds Back/Spine/Pelvis Back: No CVA tenderness Skin General: no rashes or lesions noted Neuro General: alert, oriented x3, gait normal and no focal motor deficits Speech: speech normal Extrem General: full ROM, no pedal edema and no calf tenderness Course Course Course Narrative: The patient was initially managed a UTI. She has suprapubic discomfort with leukocytes on the UA. She has planned follow-up with her primary provider in about 2 weeks. I have advised ibuprofen is inappropriate drug for use if she has cramping from having the IUD placed. She should return if she develops fever or worsening pain. Otherwise, she should see her regular doctor with the cramping pain. Orders Ordered: ED Orders 02/25/19 20:36 Urine Culture Stat Urine Microscopic Stat 02/25/19 21:50 CMP [Comprehensive Metabolic Panel] Stat Complete Blood Count AUTO DIFF Stat Vital Signs Vital signs: Vital Signs - 8 hr 02/25/19 20:20 Temperature 98.1 F Pulse Rate 79 Respiratory Rate 18 Blood Pressure 132/94 H Pulse Oximetry 99 MDM - Female Genitourinary Lab Data Result diagrams: 02/25/19 21:50 02/25/19 21:50 Labs: Lab Results 02/25/19 02/25/19 02/25/19 Range/Units 20:36 21:50 21:50 WBC 9.1 (4.5-11.0) X10^3/uL RBC 3.97 L (4.0-5.2) X10^6/uL Hgb 12.2 (12.0-16.0) g/dL Hct 35.6 L (36-46) % MCV 89.8 (80-100) fL MCH 30.8 (26-34) PG MCHC 34.4 (30-36) % RDW 11.9 (11.6-14.8) % Plt Count 207 (150-400) X10^3/uL Neut % (Auto) 58.9 (50-75) % Lymph % (Auto) 32.3 (25-40) % [place] % (Auto) 7.9 (3-14) % Eos % (Auto) 0.4 L (2-4) % Baso % (Auto) 0.5 (0-2) % Neut # (Auto) 5400 (1867-1401) /uL Lymph # (Auto) 3000 (2965-9220) /uL [place] # (Auto) 700 (0-900) /uL Eos # (Auto) 0 (0-450) /uL Baso # (Auto) 0 (0-100) /uL Sodium 136 L (137-145) mmol/L Potassium 3.8 (3.4-5.1) mmol/L Chloride 102 (98-107) mmol/L Carbon Dioxide 29 (22-32) mmol/L BUN 14 (7-17) mg/dL Creatinine 0.70 (0.52-1.04) mg/dL Estimated GFR > 60.0 (>60) mL/min BUN/Creatinine Ratio 20.0 (6-22) Glucose 112 H (70-100) mg/dL Calcium 9.3 (8.4-10.2) mg/dL Total Bilirubin 0.3 (0.2-1.3) mg/dL AST 24 (14-36) IU/L ALT 17 (9-52) IU/L Alkaline Phosphatase 74 (38-126) U/L Total Protein 6.6 (6.3-8.2) g/dL Albumin 3.7 (3.5-5.0) g/dL Globulin 2.9 (1.7-4.1) g/dL Albumin/Globulin Ratio 1.3 (1.0-2.8) Urine RBC 5-10/hpf H (0-5/HPF) Urine WBC 5-10/hpf H (0-5/HPF) Ur Squamous Epith Cells 0-1 /hpf (0-5/HPF) Urine Bacteria Occasional (0-1) (None) Ur Culture Indicated? Specimen cultured Point of Care Testing Test Results Negative Urine Dip Bedside Urine Glucose Negative Bedside Urine Bilirubin - Negative Bedside Urine Ketone - Negative Urine Specific [place] 1.020 Bedside Urine Occult Blood +++ Bedside Urine pH 6.0 Bedside Urine Protein - Negative Bedside Urine Urobilinogen - Negative Bedside Urine Nitrite - Negative Bedside Urine Leukocytes + 70 Esterase Discharge Plan Departure Patient Disposition: Home Clinical Impression: Abnormal vaginal bleeding Urinary tract infection Qualifiers: Urinary tract infection type: acute cystitis Hematuria presence: with hematuria Qualified Code(s): N30.01 - Acute cystitis with hematuria Instructions: DI for Urinary Tract Infection (UTI) Activity Restrictions/Additional Instructions: Septra DS 2 times daily for 1 week. Ibuprofen every 6 hours as needed for pain. Be sure you are drinking plenty fluids. Follow-up with her doctor at the [facility] later this month as scheduled. Return here for increasing pain, or fever. Prescriptions: New sulfamethoxazole-trimethoprim 800-160 mg tablet 1 tab PO BID 7 Days Qty: 14 RF: 0 No Action No Known Home Medications RF: 0
[2019-02-25 22:09] LABS: Alanine Aminotransferase 17 IU/L (9-52); Albumin 3.7 g/dL (3.5-5.0); Albumin Globulin Ratio 1.3 (1.0-2.8); Alkaline Phosphatase 74 U/L (38-126); Aspartate Aminotransferase 24 IU/L (14-36); Bilirubin Total 0.3 mg/dL (0.2-1.3); Blood Urea Nitrogen 14 mg/dL (7-17); Calcium 9.3 mg/dL (8.4-10.2); Carbon Dioxide 29 mmol/L (22-32); Chloride 102 mmol/L (98-107); Estimated Glomerular Filt Rate > 60.0 mL/min (>60); Globulin 2.9 g/dL (1.7-4.1); Glucose 112 mg/dL (70-100); HEMOLYSIS < 15 (0-50); Potassium 3.8 mmol/L (3.4-5.1); Sodium 136 mmol/L (137-145); Total Protein 6.6 g/dL (6.3-8.2)
[2019-02-25] MEDS: TRIMETH/SULFA 160/800 (DS) TABLET 1 TAB PO (22:29)
[2019-02-25 22:35] VITALS: BP 114/79; PULSE 74
== END 2019-02-25 22:35 | disposition home or self-care (01) ==
PROVIDERS: Emergency Provider Emergency Medicine
DX: N30.01 Acute cystitis with hematuria (principal); N93.9 Abnormal uterine and vaginal bleeding, unspecified
CPT/HCPCS: 36415; 80053; 81003; 81015; 81025; 85025; 87086; 99282; 99283

== ENCOUNTER → 2019-04-04 16:01 | Outpatient (CLI) | payer OTHER, SELFPAY ==
[2019-04-04 18:36] LABS: Urine N gonorrhoeae NOT DETECTED
[2019-04-04 18:57] LABS: Urine Chlamydia NOT DETECTED
== END ==
PROVIDERS: Visit Provider Physician Assistant
DX: N89.8 Other specified noninflammatory disorders of vagina (principal); Z11.3 Encounter for screening for infections with a predominantly sexual mode of transmission; R10.9 Unspecified abdominal pain
CPT/HCPCS: 87086; 87210; 87491; 87591

== ENCOUNTER 2021-01-02 13:27 | Emergency (ER) | payer OTHER, SELFPAY ==
[2021-01-02 13:34] VITALS: BP 107/61; PULSE 66; RESP 16; TEMP 36.9; O2SAT 97
--- NOTE | 2021-01-02 17:13 | ED.SKABFB ---
HPI - Skin/Abscess/Foreign Bdy General Chief complaint: Skin/Abscess/Foreign Body Stated complaint: infection under finger nail Time Seen by Provider: 01/02/21 17:07 Source: patient Mode of arrival: Ambulatory History of Present Illness HPI narrative: Patient is a 20-year-old female who presents with left thumb concern. She states it was slammed in a door a couple of months ago she had a subungual hematoma which seem to have resolved. She now has a yellow spot on her nail near here cuticle which she is concerned for an infection. She has no surrounding pain erythema or fever. Related Data Home Medications Medication Instructions Recorded Confirmed IUD IMPLANT 04/04/19 04/04/19 Previous Rx's Medication Instructions Recorded metronidazole 500 mg tablet 500 mg PO BID #14 tab 04/04/19 (Flagyl) Allergies Allergy/AdvReac Type Severity Reaction Status Date / Time No Known Drug Allergies Allergy Verified 04/04/19 16:44 Review of Systems Review of Systems Narrative: GENERAL: Denies chills,fever HEENT: Denies throat pain RESPIRATORY: Denies dyspnea, cough, wheezing CARDIOVASCULAR: Denies chest pain, palpitations GASTROINTESTINAL: Denies nausea, vomiting MUSCULOSKELETAL: Denies extremity pain, injury SKIN: See HPI NEUROLOGIC: Denies weakness, dizziness, headache, numbness 8 point review of systems is negative except for those stated above and HPI Patient History Medical History (Updated 01/02/21 @ 17:15 by Marlene Rodriguez DO) Migraines No acute medical problems Surgical History (Updated 02/25/19 @ 22:31 by Tomás Thrasher MD) No pertinent past surgical history Social History Smoking Status: Former smoker Smoking Status: Former smoker alcohol intake frequency: 0-2 drinks per day Substance Use Type: does not use Exam Initial Vital Signs Initial Vital Signs: Vital Signs Temperature 98.4 F 01/02/21 13:34 Pulse Rate 66 01/02/21 13:34 Respiratory Rate 16 01/02/21 13:34 Blood Pressure 107/61 01/02/21 13:34 Pulse Oximetry 97 01/02/21 13:34 GENERAL: Well-appearing, well-nourished and in no acute distress. CARDIOVASCULAR: peripheral pulses in tact, cap refill <2 sec RESPIRATORY: No respiratory distress, speaks in full sentences without difficulty EXTREMITIES: Normal range of motion, no clubbing or edema. Neurovascularly intact NEUROLOGICAL: Cranial nerves II through XII grossly intact. Normal gait and speech. SKIN: Left thumbnail mild discoloration of yellow at the base of the cuticle. No surrounding erythema swelling or pain Course Vital Signs Vital signs: Vital Signs - 8 hr 01/02/21 13:34 Temperature 98.4 F Pulse Rate 66 Respiratory Rate 16 Blood Pressure 107/61 Pulse Oximetry 97 MDM - Skin/Abscess/Foreign Bdy MDM Narrative Medical decision making narrative: At this time there is no sign of infection as nonpainful no need for antibiotics. Discharge Plan Departure Patient Disposition: Home Clinical Impression: Nail abnormality Instructions: DI for Nail Bed Injury Activity Restrictions/Additional Instructions: *You have been diagnosed with left thumb nail injury *What to do: At this time there is absolutely no sign of infection. I think what you are seeing is an injury to the nail from the original injury as part of he the healing process. I anticipate that it grows any eventually cut it off. *Continue to take medications as directed *Follow up with your primary care provider in 2-3 days *Return to ER if you should have redness swelling pus pain or any new, worsening or concerning symptoms Prescriptions: No Action IUD implant RF: 0 metronidazole [Flagyl] 500 mg tablet 500 mg PO BID Qty: 14 RF: 0
== END 2021-01-02 17:18 | disposition home or self-care (01) ==
PROVIDERS: Emergency Provider Emergency Medicine
DX: L60.9 Nail disorder, unspecified (principal)
CPT/HCPCS: 99281

== ENCOUNTER 2022-12-04 16:03 | Emergency (ER) | payer OTHER, SELFPAY ==
[2022-12-04 16:07] VITALS: BP 109/65; PULSE 75; RESP 18; TEMP 37.2; O2SAT 98; BMI 20.2
--- NOTE | 2022-12-04 16:15 | PC.NURSE ---
Patient typically wears glasses, visual acuity done without. Pt denies visual changes in the left affected eye. Pt reports left eye feels dry, she washed out for over 15 minutes prior to arrival.
--- NOTE | 2022-12-04 17:17 | ED.EYEPROB ---
HPI - Eye Problem <Debbie Shah PA-C - Last Filed: 12/04/22 17:59> General Chief complaint: Eye Problems Stated complaint: Jet fuel in left eye Time Seen by Provider: 12/04/22 17:11 Source: patient Mode of arrival: Ambulatory History of Present Illness HPI Narrative: Patient is a 21-year-old female presenting for evaluation of jet fuel in her eye several hours ago. She says that she irrigated it out. She notes that it feels quite dry at this time. She denies any change to her visual acuity. She denies any current pain at this moment. She denies any change to her vision and reports she normally wears glasses. She reports feeling like her left eye has become more dry than normal in his not tearing up like normal. She says it may be due to the irrigation. She denies any pain with extraocular movement. Related Data Home Medications Medication Instructions Recorded Confirmed IUD implant 04/04/19 04/04/19 Previous Rx's Medication Instructions Recorded metronidazole 500 mg tablet 500 mg PO BID #14 tabs 04/04/19 (Flagyl) erythromycin 5 mg/gram (0.5 %) eye 1 applic EYE-LEFT QID 7 days #3.5 12/04/22 ointment grams Allergies Allergy/AdvReac Type Severity Reaction Status Date / Time No Known Drug Allergies Allergy Verified 04/04/19 16:44 Review of Systems <Debbie Shah PA-C - Last Filed: 12/04/22 17:59> Review of Systems Narrative: Per HPI Eyes Eyes: Denies blurry vision, Denies change in vision, Denies eye discharge, Reports dry eyes, Denies itchy eyes, Denies loss of vision, Denies other visual disturbances, Denies eye pain and Reports requires corrective lenses Neurologic Neurologic: Denies loss of vision Allergic/Immunologic Allergic/Immunologic: Denies itchy eyes Patient History <Debbie Shah PA-C - Last Filed: 12/04/22 17:59> Medical History Migraines No acute medical problems Surgical History No pertinent past surgical history Social History Smoking Status: Former smoker Smoking Status: Former smoker alcohol intake frequency: 0-2 drinks per day Substance Use Type: does not use Exam <Debbie Shah PA-C - Last Filed: 12/04/22 17:59> Initial Vital Signs Initial Vital Signs: Vital Signs Temperature 99 F 12/04/22 16:07 Pulse Rate 75 12/04/22 16:07 Respiratory Rate 18 12/04/22 16:07 Blood Pressure 109/65 12/04/22 16:07 Pulse Oximetry 98 12/04/22 16:07 Oxygen Delivery Method Room Air 12/04/22 16:07 GENERAL: 21 year old patient appears stated age. Well-developed patient, in no acute distress. HEAD: Atraumatic. Normocephalic. EYES: Pupils equal round and reactive. Extraocular motions intact without pain. No scleral icterus. No injection or drainage. No dark fluid noted under upper or lower eyelid. Fluorescein staining over left eye showed no uptake. Respiratory: Patient has no increased work of breathing and speaks comfortably in complete sentences. NEURO: AOx3. SKIN: No rash or erythema of visible areas <Tereza Kc DO - Last Filed: 12/05/22 18:13> Initial Vital Signs Initial Vital Signs: Vital Signs Temperature 99 F 12/04/22 16:07 Pulse Rate 75 12/04/22 16:07 Respiratory Rate 18 12/04/22 16:07 Blood Pressure 109/65 12/04/22 16:07 Pulse Oximetry 98 12/04/22 16:07 Oxygen Delivery Method Room Air 12/04/22 16:07 Course <Debbie Shah PA-C - Last Filed: 12/04/22 17:59> Orders Ordered: Discontinued Medications Fluorescein Sodium (Fluorescein 1 Mg Strip) 1 mg EYE-LEFT NOW ONE Stop: 12/04/22 17:30 Last Admin: 12/04/22 17:32 Dose: 1 mg Documented By: HUMA Proparacaine HCl (Proparacaine 0.5% Ophth Jossie) 1 drops EYE-LEFT NOW ONE Stop: 12/04/22 17:29 Last Admin: 12/04/22 17:32 Dose: 1 drops Documented By: HUMA Vital Signs Vital signs: Vital Signs - 8 hr 12/04/22 16:07 Temperature 99 F Pulse Rate 75 Respiratory Rate 18 Blood Pressure 109/65 Pulse Oximetry 98 Oxygen Delivery Method Room Air <Tereza Kc DO - Last Filed: 12/05/22 18:13> Orders Ordered: Discontinued Medications Fluorescein Sodium (Fluorescein 1 Mg Strip) 1 mg EYE-LEFT NOW ONE Stop: 12/04/22 17:30 Last Admin: 12/04/22 17:32 Dose: 1 mg Documented By: UHMA Proparacaine HCl (Proparacaine 0.5% Ophth Jossie) 1 drops EYE-LEFT NOW ONE Stop: 12/04/22 17:29 Last Admin: 12/04/22 17:32 Dose: 1 drops Documented By: HUMA Vital Signs Vital signs: Vital Signs - 8 hr 12/04/22 16:07 Temperature 99 F Pulse Rate 75 Respiratory Rate 18 Blood Pressure 109/65 Pulse Oximetry 98 Oxygen Delivery Method Room Air MDM - Eye Problem <Debbie Shah PA-C - Last Filed: 12/04/22 17:59> Lab Data Labs: Point of Care Testing pH,Tear Film,POC Measurement pH 7 MDM Narrative Medical decision making narrative: Patient is a 21-year-old female presenting for evaluation of jet fuel in her left eye. She denies any change in her vision and denies any pain at this time. She irrigated it for 15 minutes after it happened. Denies wearing contact lenses and reports she regularly wears glasses. Vision exam showed equal vision bilaterally of 20/50, she has no injection in her conjunctiva and no tenderness with extraocular movements on exam. Fluorescein staining did not show any corneal abrasion or uptake. Pupils are equal round and reactive to light. PH level was normal. Multiple etiologies for patient's symptoms considered including, but not limited to: Chemical burn Discussed with patient that based upon exam and testing today it appears that her eye is doing well after the exposure to jet fuel. Recommend that she be treated with erythromycin ointment due to exposure. Please continue monitoring and follow up with Ophthalmology if sensation of dry eye continues without improvement over the next several days. I recommend she follow up in the ER if she develops any change to her vision, return of pain or any other concerning symptoms discussed in discharge instructions. Findings and discharge diagnosis discussed with patient/family followed by verbalization of understanding Return precautions discussed with patient/family whom verbalize understanding of diagnosis and plan <Tereza Kc DO - Last Filed: 12/05/22 18:13> Lab Data Labs: Point of Care Testing pH,Tear Film,POC Measurement pH 7 Discharge Plan Departure Patient Disposition: Home Clinical Impression: Chemical conjunctivitis of left eye Instructions: DI for Chemical Eye Burn Activity Restrictions/Additional Instructions: You were seen today for evaluation of her left eye after you got feeling it. The PH of your eye was normal and your visual exam was equal bilaterally. Fluorescein eye staining did not show any corneal abrasion. I recommend treatment after the jet fuel exposure with erythromycin ointment in your left eye. If you should develop any change in your vision or increase of pain that you return to the emergency department for further evaluation. If you continued to have dry eye without any tearing in your left eye then please continue follow up with eye doctor for further evaluation. Prescriptions: New erythromycin 5 mg/gram (0.5 %) ointment 1 applic EYE-LEFT QID 7 Days Qty: 3.5 0RF No Action IUD implant metronidazole [Flagyl] 500 mg tablet 500 mg PO BID Qty: 14 0RF Stand Alone Forms: Patient Portal/API <Tereza Kc DO - Last Filed: 12/05/22 18:13> Cosign ED Attending Cosignature Attestation: I was immediately available in the department for consultation. Documentation has been reviewed.
[2022-12-04] MEDS: FLUORESCEIN 1 MG STRIP EYE-LEFT (17:32)
[2022-12-04] MEDS: PROPARACAINE 0.5% OPHTH SOL 1 DROPS EYE-LEFT (17:32)
== END 2022-12-04 17:50 | disposition home or self-care (01) ==
PROVIDERS: Emergency Provider Physician Assistant
DX: T59.891A Toxic effect of other specified gases, fumes and vapors, accidental (unintentional), initial encounter (principal); H10.212 Acute toxic conjunctivitis, left eye
CPT/HCPCS: 99282; 99283

== ENCOUNTER → 2024-08-08 14:47 | Outpatient (CLI) | payer OTHER, SELFPAY ==
--- NOTE | 2024-08-08 14:50 | DI.RAD.S_ITS ---
PROCEDURE: HL HYSTEROSAPINGOGRAPHY INDICATIONS: Infertility COMPARISON: None. FINDINGS: Patient had a documented negative test prior to the study. Following speculum insertion, a balloon-tip catheter was inserted into the cervical canal, and secured by inflating the balloon. Contrast was then injected into the endometrial canal. Uterus: The uterine cavity appears normal in size and morphology, without synechiae or masses. Fallopian tubes: Both fallopian tubes fill with contrast, and appear normal in caliber and morphology. There is ready dispersion of contrast into the peritoneal cavity. IMPRESSION: Normal study. Dictated by: Caleb Jiang M.D. on 08/08/2024 at 15:58 Approved by: Caleb Jiang M.D. on 08/08/2024 at 15:59
== END ==
LOC: RAD 14:49
PROVIDERS: Referring Provider Obstetrics & Gynecology; Visit Provider Obstetrics & Gynecology
DX: E28.2 Polycystic ovarian syndrome (principal); N92.6 Irregular menstruation, unspecified; Z31.69 Encounter for other general counseling and advice on procreation
CPT/HCPCS: 58340; 74740